=== PATIENT | male | born 1965 | race African-American/Black ===

== ENCOUNTER 2017-12-10 19:52 | Emergency (ER) | payer SELFPAY | END 2017-12-10 20:34 | disposition home or self-care (01) | LOC: ER 19:52 | DX: M54.5 Low back pain (principal); G89.29 Other chronic pain; I10 Essential (primary) hypertension | CPT/HCPCS: 99283 ==

== ENCOUNTER 2018-09-25 21:38 | Emergency (ER) | payer BC ==
[~2018-09-25] VITALS: Ht 167.6 cm; Wt 93.0 kg
[~2018-09-25 21:38] MED LIST: CYCL10TA2 PO; DICL50TA4 PO; METH4TAB2 PO
[2018-09-25 23:05] VITALS: BP 134/81
[2018-09-26 00:51] LABS: INFLUENZA A PATIENT NEGATIVE (NEGATIVE); INFLUENZA B PATIENT NEGATIVE (NEGATIVE)
[2018-09-26] MEDS ORDERED: BENZ100C PO (00:59)
[2018-09-26] MEDS ORDERED: FLUT9.9S NS (00:59)
--- NOTE | 2018-09-26 00:59 | PHYS DOC ---
Past Medical History Past Medical History: High Cholesterol, Other Additional Past Medical Histor: CHRONIC BACK PAIN (ROMAN CORONADO APRN) Past Surgical History: No Surgical History, Other Additional Past Surgical Histo: HERNIA, LEFT HAND (ROMAN CORONADO APRN) Alcohol Use: Rarely Drug Use: Marijuana (ROMAN CORONADO APRN) Adult General Chief Complaint Chief Complaint: Congestion HPI HPI Patient is a 52 year old male with history of high cholesterol who presents to the ED today complaining of cough and nasal congestion, symptoms began 3 days ago. Denies any fever. (ROMAN CORONADO APRN) Review of Systems Review of Systems Constitutional: Denies fever or chills [] Eyes: Denies change in visual acuity, redness, or eye pain [] HENT: Reports nasal congestion, denies sore throat [] Respiratory: Reports cough, denies shortness of breath [] Cardiovascular: No additional information not addressed in HPI [] GI: Denies abdominal pain, nausea, vomiting, bloody stools or diarrhea [] : Denies dysuria or hematuria [] Musculoskeletal: Denies back pain or joint pain [] Integument: Denies rash or skin lesions [] Neurologic: Denies headache, focal weakness or sensory changes [] All other systems were reviewed and found to be within normal limits, except as documented in this note. (ROMAN CORONADO APRN) Allergies Allergies Allergies Coded Allergies Type Severity Reaction Last Updated Verified No Known Drug Allergies 03/28/14 No (BRI NICHOLS DO) Physical Exam Physical Exam Constitutional: Well developed, well nourished, no acute distress, non-toxic appearance. [] HENT: Normocephalic, atraumatic, bilateral external ears normal, oropharynx moist, no oral exudates, nose normal. [] Eyes: PERRLA, EOMI, conjunctiva normal, no discharge. [] Neck: Normal range of motion, no tenderness, supple, no stridor. [] Cardiovascular:Heart rate regular rhythm, no murmur [] Lungs & Thorax: Bilateral breath sounds clear to auscultation [] Abdomen: Bowel sounds normal, soft, no tenderness, no masses, no pulsatile masses. [] Skin: Warm, dry, no erythema, no rash. [] Back: No tenderness, no CVA tenderness. [] Extremities: No tenderness, no cyanosis, no clubbing, ROM intact, no edema. [] Neurologic: Alert and oriented X 3, normal motor function, normal sensory function, no focal deficits noted. [] Psychologic: Affect normal, judgement normal, mood normal. [] (ROMAN CORONADO APRN) Current Patient Data Vital Signs Vital Signs Date Time Temp Pulse Resp B/P (MAP) Pulse Ox O2 Delivery O2 Flow Rate FiO2 09/25/18 23:05 97.9 60 14 134/81 (98) 99 Room Air 97.9 (BRI NICHOLS DO) Lab Values Laboratory Tests Test 09/26/18 00:18 Influenza Type A Antigen Negative (NEGATIVE) Influenza Type B Antigen Negative (NEGATIVE) (BRI NICHOLS DO) EKG EKG [] (ROMAN CORONADO APRN) Radiology/Procedures Radiology/Procedures [] (ROMAN CORONADO APRN) Radiology/Procedures PROCEDURE: CHEST PA & LATERAL PA and lateral chest radiographs 09/26/2018 CLINICAL HISTORY: Shortness of breath and cough. PA and lateral digital radiographs of the chest were obtained. No previous studies are available for comparison. The cardiac silhouette is normal in size. The thoracic aorta is mildly tortuous. Atherosclerotic calcification of the thoracic aorta is seen. No acute pulmonary infiltrate is noted. No pneumothorax or pleural effusion is seen. Mild degenerative changes are seen involving the thoracic spine. IMPRESSION: No acute pulmonary infiltrate is seen. Electronically signed by: Conrado Souza MD (09/26/2018 3:12 AM) [facility] (BRI NICHOLS DO) Course & Med Decision Making Course & Med Decision Making Pertinent Labs and Imaging studies reviewed. (See chart for details) This is a 52-year-old male patient presenting to the ED today with cough and nasal congestion, symptoms began 3 days ago. Patient is afebrile in the ED. Negative influenza A or B. Chest x-ray interpreted by is negative. Patient was discharged with instructions to follow-up with the primary care doctor. Given prescription for Flonase. OTC medications recommended. Discharged in stable condition. (ROMAN CORONADO APRN) Dragon Disclaimer Dragon Disclaimer This electronic medical record was generated, in whole or in part, using a voice recognition dictation system. (ROMAN CORONADO APRN) Departure Departure Impression: Primary Impression: Cough Additional Impression: Upper respiratory infection Disposition: HOME, SELF-CARE Condition: STABLE Referrals: NO PCP (PCP) follow up with your doctor in 1-2 week Patient Instructions: Cough, Adult, [id number], Upper Respiratory Infection, Adult, [id number] Additional Instructions: You were evaluated in the emergency room with symptoms consistent of a viral illness. Push fluids, rest, maintain good hand hygiene. Take the prescribed medication as ordered. Follow-up with your own doctor in 1-2 weeks. You can also use tpre-kck-[id number] cold and flu remedies. Scripts Benzonatate (TESSALON PERLE) 100 Mg Capsule 1 CAP PO TID, #30 CAP Prov: ROMAN CORONADO APRN 09/26/18 Fluticasone Propionate (Flonase Allergy Relief) 9.9 Ml [place].susp 2 SPRAYS NS DAILY, #1 BOTTLE Prov: ROMAN CORONADO APRN 09/26/18 Attending Signature Attending Signature I have reviewed the PA/SOCIAL STUDIES TEACHER's note and plan of care. I was available for consultation as needed during the patient's visit in the emergency department. I agree with the clinical impression, plan, and disposition. (BRI NICHOLS DO) Problem Qualifiers Additional Impression: Upper respiratory infection URI type: unspecified URI Qualified Codes: J06.9 - Acute upper respiratory infection, unspecified ROMAN CORONADO APRN Sep 26, 2018 00:59 BRI NICHOLS DO Sep 29, 2018 05:32
--- NOTE | 2018-09-26 03:15 | RAD ---
PA and lateral chest radiographs 09/26/2018 CLINICAL HISTORY: Shortness of breath and cough. PA and lateral digital radiographs of the chest were obtained. No previous studies are available for comparison. The cardiac silhouette is normal in size. The thoracic aorta is mildly tortuous. Atherosclerotic calcification of the thoracic aorta is seen. No acute pulmonary infiltrate is noted. No pneumothorax or pleural effusion is seen. Mild degenerative changes are seen involving the thoracic spine. IMPRESSION: No acute pulmonary infiltrate is seen. Electronically signed by: Conrado Souza MD (09/26/2018 3:12 AM) [facility]
== END 2018-09-26 01:08 | disposition home or self-care (01) ==
LOC: ER 21:38
DX: J06.9 Acute upper respiratory infection, unspecified (principal); E78.00 Pure hypercholesterolemia, unspecified; G89.29 Other chronic pain
CPT/HCPCS: 71046; 87804; 99284-25

== ENCOUNTER 2018-10-20 13:18 | Emergency (ER) | payer BC ==
[~2018-10-20] VITALS: Ht 175.3 cm; Wt 90.7 kg
[~2018-10-20 13:18] MED LIST changes: +BENZ100C PO; +FLUT9.9S NS
[2018-10-20 13:22] VITALS: BP 155/80
[2018-10-20] MEDS ORDERED: KETOROLAC 30 MG/ML VIAL. IV ONE (14:00)
--- NOTE | 2018-10-20 14:00 | PHYS DOC ---
Past Medical History Past Medical History: High Cholesterol, Other Additional Past Medical Histor: CHRONIC BACK PAIN Past Surgical History: No Surgical History, Other Additional Past Surgical Histo: HERNIA, LEFT HAND Smoking: Cigarettes Alcohol Use: Rarely Drug Use: Marijuana Adult General Chief Complaint Chief Complaint: HEADACHE HPI HPI Patient is a 53 year old male who presents with complaining of headache. Patient complaining of intermittent episodes of frontal and retro-orbital headache for the last one month that usually happen twisted week and last for about 30 minutes as a sharp and throbbing pain with blurred vision and photophobia. Patient denies fever and chills, focal neuro deficit, neck pain, head injury, history of migraine headache or previous episodes of headache, history of hypertension. Patient states his pain was 10 over 10 and after taking at least dropped to 7/10. Patient states he was doing this emergency room about 1 month ago with the same headache and complaining of cough and treated for cough without having any evaluation of his headache improvement of cough. Patient currently is a smoker and states he drinks alcohol occasionally. Review of Systems Review of Systems Constitutional: Denies fever or chills [] Eyes: Denies change in visual acuity, redness, or eye pain [] HENT: Denies nasal congestion or sore throat [] Respiratory: Denies cough or shortness of breath [] Cardiovascular: No additional information not addressed in HPI [] GI: Denies abdominal pain, nausea, vomiting, bloody stools or diarrhea [] : Denies dysuria or hematuria [] Musculoskeletal: Denies back pain or joint pain [] Integument: Denies rash or skin lesions [] Neurologic: Reports headache, denies focal weakness or sensory changes [] Endocrine: Denies polyuria or polydipsia [] All other systems were reviewed and found to be within normal limits, except as documented in this note. Current Medications Current Medications Current Medications Medications (Trade) Dose Ordered Sig/Mj Start Time Stop Time Status Last Admin Dose Admin Ketorolac Tromethamine (Toradol 30mg Vial) 30 mg 1X ONCE 10/20/18 14:00 10/20/18 14:01 DC 10/20/18 14:39 30 MG Allergies Allergies Allergies Coded Allergies Type Severity Reaction Last Updated Verified No Known Drug Allergies 03/28/14 No Physical Exam Physical Exam Constitutional: Well developed, well nourished, mild distress, non-toxic appearance. [] HENT: Normocephalic, atraumatic, bilateral external ears normal, oropharynx moist, no oral exudates, nose normal. [] Eyes: PERRLA, EOMI, conjunctiva normal, no discharge. [] Neck: Normal range of motion, no tenderness, supple, no stridor. [] Cardiovascular:Heart rate regular rhythm, no murmur [] Lungs & Thorax: Bilateral breath sounds clear to auscultation [] Neurologic: Alert and oriented X 3, normal motor function, normal sensory function, no focal deficits noted. [] Psychologic: Affect normal, judgement normal, mood normal. [] Current Patient Data Vital Signs Vital Signs Date Time Temp Pulse Resp B/P (MAP) Pulse Ox O2 Delivery O2 Flow Rate FiO2 10/20/18 13:22 98.2 85 16 155/80 (105) 97 98.2 Lab Values Laboratory Tests Test 10/20/18 13:55 10/20/18 14:20 White Blood Count 8.3 x10^3/uL (4.0-11.0) Red Blood Count 4.53 x10^6/uL (4.30-5.70) Hemoglobin 12.8 g/dL (13.0-17.5) L Hematocrit 36.7 % (39.0-53.0) L Mean Corpuscular Volume 81 fL (79-100) Mean Corpuscular Hemoglobin 28 pg (25-35) Mean Corpuscular Hemoglobin Concent 35 g/dL (31-37) Red Cell Distribution Width 15.0 % (11.5-14.5) H Platelet Count 336 x10^3/uL (140-400) Neutrophils (%) (Auto) 60 % (31-73) Lymphocytes (%) (Auto) 31 % (24-48) Monocytes (%) (Auto) 8 % (0-9) Eosinophils (%) (Auto) 1 % (0-3) Basophils (%) (Auto) 1 % (0-3) Neutrophils # (Auto) 5.0 x10^3uL (1.8-7.7) Lymphocytes # (Auto) 2.5 x10^3/uL (1.0-4.8) Monocytes # (Auto) 0.7 x10^3/uL (0.0-1.1) Eosinophils # (Auto) 0.1 x10^3/uL (0.0-0.7) Basophils # (Auto) 0.1 x10^3/uL (0.0-0.2) Sodium Level 138 mmol/L (136-145) Potassium Level 4.1 mmol/L (3.5-5.1) Chloride Level 103 mmol/L (98-107) Carbon Dioxide Level 24 mmol/L (21-32) Anion Gap 11 (6-14) Blood Urea Nitrogen 13 mg/dL (8-26) Creatinine 0.9 mg/dL (0.7-1.3) Estimated GFR (Cockcroft-Gault) 106.0 BUN/Creatinine Ratio 14 (6-20) Glucose Level 91 mg/dL (70-99) Calcium Level 8.9 mg/dL (8.5-10.1) Total Bilirubin 0.3 mg/dL (0.2-1.0) Aspartate Amino Transferase (AST) 24 U/L (15-37) Alanine Aminotransferase (ALT) 23 U/L (16-63) Alkaline Phosphatase 102 U/L (46-116) Total Protein 7.4 g/dL (6.4-8.2) Albumin 3.6 g/dL (3.4-5.0) Albumin/Globulin Ratio 0.9 (1.0-1.7) L Ethyl Alcohol Level 12 mg/dL (0-10) H Laboratory Tests 10/20/18 13:55 Laboratory Tests 10/20/18 14:20 EKG EKG [] Radiology/Procedures Radiology/Procedures [facility] [address] [place] [address] IMAGING REPORT Signed PATIENT: ALEXEY BAKER ACCOUNT: [id number] : 1965 LOCATION: ER AGE: 53 SEX: M EXAM STATUS: REG ER ORD. PHYSICIAN: JODEE MARK MD REASON: headache PROCEDURE: CT HEAD WO CONTRAST Exam performed: CT scan of the head without contrast. Date of Service: 10/20/2018. Comparison: None available. Clinical History: Headache. Technique: Helical acquisitions are obtained from the foramen magnum to the vertex without intravenous administration of contrast. Findings: The ventricles are midline without evidence of dilatation. Normal conroy-white differentiation is maintained. There is no extra axial fluid collection, intraparenchymal hemorrhage or mass lesion. The visualized portions of the orbits, paranasal sinuses and the mastoid air cells appear clear. The calvarium is intact. Impression: 1. No acute intracranial process detected. RS Compliance Statement: One or more of the following individualized dose reduction techniques were utilized for this examination: 1. Automated exposure control 2. Adjustment of the mA and/or kV according to patient size 3. Use of iterative reconstruction technique Electronically signed by: Kiana Mosher MD (10/20/2018 2:11 PM) [facility] DICTATED and SIGNED BY: KIANA MOSHER MD DATE: 10/20/18 1411 Course & Med Decision Making Course & Med Decision Making Pertinent Labs and Imaging studies reviewed. (See chart for details) Evaluation of patient in ER showed 53-year-old male patient with complaining of intermittent episodes of headache for one month. Patient had unremarkable physical exam and labs and CT head. Blood pressure was 150 at arrival to ER that gradually decreased to 145 without history of hypertension. According to EMR patient had history of hypertension and stated she does not take any medication. Patient felt better with treatment with Toradol in ER. Patient was advised to check and record his blood pressure and follow up with her primary care physician and plan discharge patient home to diagnose of headache induced with hypertension and using alcohol. Dragon Disclaimer Dragon Disclaimer This electronic medical record was generated, in whole or in part, using a voice recognition dictation system. Departure Departure Impression: Primary Impression: Headache Additional Impressions: Uncontrolled hypertension Tobacco abuse Tobacco abuse counseling Disposition: HOME, SELF-CARE (715) Condition: IMPROVED Referrals: NO PCP (PCP) Patient Instructions: Alcohol and Headaches, General Headache Without Cause, Hypertension, Smoking Cessation, Tips For Success Additional Instructions: Record your blood pressure and follow-up with your primary care physician Follow-up with your primary care physician in 3-5 days Return to ER if not getting better Scripts Lisinopril/Hydrochlorothiazide (LISINOPRIL-HCTZ 10-12.5 MG TAB) 1 Each Tablet 1 TAB PO DAILY, #30 TAB 0 Refills Prov: JODEE MARK MD 10/20/18 Problem Qualifiers Primary Impression: Headache Headache type: unspecified Headache chronicity pattern: unspecified pattern Intractability: not intractable Qualified Codes: R51 - Headache JODEE MARK MD Oct 20, 2018 14:00
[2018-10-20 14:04] LABS: BASO # 0.1 x10^3/uL (0.0-0.2); BASO % 1 % (0-3); EOS # 0.1 x10^3/uL (0.0-0.7); EOS % 1 % (0-3); HEMATOCRIT 36.7 % (39.0-53.0); HEMOGLOBIN 12.8 g/dL (13.0-17.5); LYMPH # 2.5 x10^3/uL (1.0-4.8); LYMPH % 31 % (24-48); MEAN CORPUSCULAR HEMOGLOBIN 28 pg (25-35); MEAN CORPUSCULAR HGB CONC 35 g/dL (31-37); MEAN CORPUSCULAR VOLUME 81 fL (79-100); MONO # 0.7 x10^3/uL (0.0-1.1); MONO % 8 % (0-9); NEUT % 60 % (31-73); PLATELET COUNT 336 x10^3/uL (140-400); RED BLOOD COUNT 4.53 x10^6/uL (4.30-5.70); WHITE BLOOD COUNT 8.3 x10^3/uL (4.0-11.0)
--- NOTE | 2018-10-20 14:14 | RAD ---
Exam performed: CT scan of the head without contrast. Date of Service: 10/20/2018. Comparison: None available. Clinical History: Headache. Technique: Helical acquisitions are obtained from the foramen magnum to the vertex without intravenous administration of contrast. Findings: The ventricles are midline without evidence of dilatation. Normal conroy-white differentiation is maintained. There is no extra axial fluid collection, intraparenchymal hemorrhage or mass lesion. The visualized portions of the orbits, paranasal sinuses and the mastoid air cells appear clear. The calvarium is intact. Impression: 1. No acute intracranial process detected. PQRS Compliance Statement: One or more of the following individualized dose reduction techniques were utilized for this examination: 1. Automated exposure control 2. Adjustment of the mA and/or kV according to patient size 3. Use of iterative reconstruction technique Electronically signed by: Kiana Mosher MD (10/20/2018 2:11 PM) [facility]
[2018-10-20 14:33] LABS: CALCIUM 8.9 mg/dL (8.5-10.1); CREATININE 0.9 mg/dL (0.7-1.3); POTASSIUM 4.1 mmol/L (3.5-5.1)
[2018-10-20 14:38] LABS: ALBUMIN 3.6 g/dL (3.4-5.0); ALBUMIN/GLOBULIN RATIO 0.9 (1.0-1.7); TOTAL BILIRUBIN 0.3 mg/dL (0.2-1.0); TOTAL PROTEIN 7.4 g/dL (6.4-8.2)
[2018-10-20] MEDS ORDERED: LISI1TAB3 PO (15:51)
== END 2018-10-20 16:20 | disposition home or self-care (01) ==
LOC: ER 13:18
DX: R51 Headache (principal); I10 Essential (primary) hypertension; Z71.6 Tobacco abuse counseling; E78.00 Pure hypercholesterolemia, unspecified; G89.29 Other chronic pain; F17.210 Nicotine dependence, cigarettes, uncomplicated
CPT/HCPCS: 36415; 70450; 80053; 85025; 96374; 99285; G0480; J1885

== ENCOUNTER 2019-02-28 17:15 | Emergency (ER) | payer BC ==
[~2019-02-28] VITALS: Ht 167.6 cm; Wt 94.3 kg
[~2019-02-28 17:15] MED LIST changes: +LISI1TAB23 PO
[2019-02-28] MEDS ORDERED: BENZONATATE 100 MG CAPSULE. PO ONE (19:00)
[2019-02-28] MEDS ORDERED: predniSONE 10 MG TABLET PO ONE (19:00)
[2019-02-28] MEDS ORDERED: IPRATRPIUM/ALBUTEROL 0.5/2.5MG 3 ML NEBU. NEB ONE (19:00)
[2019-02-28 19:13] VITALS: BP 165/85
[2019-02-28] MEDS ORDERED: PRED50TA PO (19:33)
[2019-02-28] MEDS ORDERED: BENZ100C PO (19:33)
[2019-02-28] MEDS ORDERED: ALBU2.5V8 INH (19:33)
--- NOTE | 2019-02-28 19:33 | PHYS DOC ---
Past Medical History Past Medical History: No Pertinent History Additional Past Medical Histor: CHRONIC BACK PAIN Past Surgical History: No Surgical History, Other Additional Past Surgical Histo: HERNIA, LEFT HAND Alcohol Use: Occasionally Drug Use: Marijuana Adult General Chief Complaint Chief Complaint: COUGH HPI HPI Patient is a 53 year old male with history of smoking, hypertension, who presents to the ED today complaining of cough and nasal congestion for 3 days. Patient states several family members have similar symptoms. Denies any fever. Review of Systems Review of Systems Constitutional: Denies fever or chills [] Eyes: Denies change in visual acuity, redness, or eye pain [] HENT: Reports nasal congestion, denies sore throat [] Respiratory: Reports cough, denies shortness of breath [] Cardiovascular: No additional information not addressed in HPI [] GI: Denies abdominal pain, nausea, vomiting, bloody stools or diarrhea [] : Denies dysuria or hematuria [] Musculoskeletal: Denies back pain or joint pain [] Integument: Denies rash or skin lesions [] Neurologic: Denies headache, focal weakness or sensory changes [] All other systems were reviewed and found to be within normal limits, except as documented in this note. Current Medications Current Medications Current Medications Medications (Trade) Dose Ordered Sig/Mj Start Time Stop Time Status Last Admin Dose Admin Albuterol/ Ipratropium (Duoneb) 3 ml 1X ONCE 02/28/19 19:00 02/28/19 19:01 DC 02/28/19 18:47 3 ML Benzonatate (Tessalon Perle) 100 mg 1X ONCE 02/28/19 19:00 02/28/19 19:01 DC Prednisone (Prednisone) 50 mg 1X ONCE 02/28/19 19:00 02/28/19 19:01 DC Allergies Allergies Allergies Coded Allergies Type Severity Reaction Last Updated Verified No Known Drug Allergies 03/28/14 No Physical Exam Physical Exam Constitutional: Well developed, well nourished, no acute distress, non-toxic appearance. [] HENT: Normocephalic, atraumatic, bilateral external ears normal, oropharynx moist, no oral exudates, patient sounds congested nasally. Eyes: PERRLA, EOMI, conjunctiva normal, no discharge. [] Neck: Normal range of motion, no tenderness, supple, no stridor. [] Cardiovascular:Heart rate regular rhythm, no murmur [] Lungs & Thorax: Bilateral breath sounds clear to auscultation [] Abdomen: Bowel sounds normal, soft, no tenderness, no masses, no pulsatile masses. [] Skin: Warm, dry, no erythema, no rash. [] Back: No tenderness, no CVA tenderness. [] Extremities: No tenderness, no cyanosis, no clubbing, ROM intact, no edema. [] Neurologic: Alert and oriented X 3, normal motor function, normal sensory function, no focal deficits noted. [] Psychologic: Affect normal, judgement normal, mood normal. [] Current Patient Data Vital Signs Vital Signs Date Time Temp Pulse Resp B/P (MAP) Pulse Ox O2 Delivery O2 Flow Rate FiO2 02/28/19 19:13 98.5 107 20 165/85 (111) 97 Room Air 98.5 EKG EKG [] Radiology/Procedures Radiology/Procedures [] Course & Med Decision Making Course & Med Decision Making Pertinent Labs and Imaging studies reviewed. (See chart for details) This is a 53-year-old male patient presented to the ED today with cough and nasal congestion for 3 days. Symptoms are likely viral. Given a DuoNeb treatment and started on prednisone. Patient is a smoker, encouraged to consider smoking cessation. Discharged with albuterol inhaler, Tessalon Perles, prednisone for 4 more days. Follow-up with PCP in 1-2 weeks. Dragon Disclaimer Dragon Disclaimer This electronic medical record was generated, in whole or in part, using a voice recognition dictation system. Departure Departure Impression: Primary Impression: Acute bronchitis Additional Impressions: Upper respiratory infection Smoking addiction Disposition: 01 HOME, SELF-CARE Condition: STABLE Referrals: NO PCP (PCP) Follow-up with your doctor in 1-2 weeks Patient Instructions: Acute Bronchitis, [id number], Upper Respiratory Infection, Adult, [id number] Additional Instructions: You were evaluated in the emergency room for symptoms consistent with upper respiratory infection and acute bronchitis. Consider smoking cessation. Follow- up with your doctor in 1-2 take the prescribed medications as ordered. Scripts Prednisone (PREDNISONE) 50 Mg Tablet 1 TAB PO DAILY, #4 TAB Prov: MUTUNGA,ROMAN GAME AUTHOR 02/28/19 Benzonatate (TESSALON PERLE) 100 Mg Capsule 1 CAP PO TID, #30 CAP Prov: MUTUNGA,ROMAN GAME AUTHOR 02/28/19 Albuterol Sulfate (PROAIR HFA INHALER) 8.5 Gm Hfa.aer.ad 1 PUFF INH PRN Q6HRS PRN for SHORTNESS OF BREATH, #1 INHALER 0 Refills Prov: ROMAN CORONADO GAME AUTHOR 02/28/19 Problem Qualifiers Primary Impression: Acute bronchitis Bronchitis organism: unspecified organism Qualified Codes: J20.9 - Acute bronchitis, unspecified Additional Impressions: Upper respiratory infection URI type: unspecified URI Qualified Codes: J06.9 - Acute upper respiratory infection, unspecified ROMAN CORONADO GAME AUTHOR Feb 28, 2019 19:33
--- NOTE | 2019-02-28 22:32 | RAD ---
CHEST PA LATERAL INDICATION: Cough. COMPARISON STUDY: 09/26/2018. FINDINGS: Lungs: Normal lung volume. No pulmonary mass or consolidation. The tracheobronchial tree and hilar structures are normal. Pleura: No pleural effusion or pneumothorax. Heart and Mediastinum: The cardiomediastinal silhouette is normal. Mild tortuosity of the thoracic aorta. Bones and Soft Tissues: Mild degenerative changes of the spine. IMPRESSION: No acute cardiopulmonary process. Electronically signed by: Florencio Bond MD (02/28/2019 10:29 PM) [facility]
== END 2019-02-28 19:50 | disposition home or self-care (01) ==
LOC: ER 17:15
DX: J20.9 Acute bronchitis, unspecified (principal); J06.9 Acute upper respiratory infection, unspecified; G89.29 Other chronic pain; F17.200 Nicotine dependence, unspecified, uncomplicated
CPT/HCPCS: 71046; 94640; 99284; J7512; J7620

== ENCOUNTER 2019-07-14 18:10 | Emergency (ER) | payer BC ==
[~2019-07-14 18:10] MED LIST changes: +ALBU2.5V8 INH; +PRED50TA PO
--- NOTE | 2019-07-14 18:53 | PHYS DOC ---
Past Medical History Past Medical History: No Pertinent History Additional Past Medical Histor: CHRONIC BACK PAIN Past Surgical History: No Surgical History, Other Additional Past Surgical Histo: HERNIA, LEFT HAND Alcohol Use: Occasionally Drug Use: Marijuana Adult General Chief Complaint Chief Complaint: HEADACHE HPI HPI 53-year-old male with underlying history of hypertension presents to the emergency Department complaints of headache which started around 2 PM. He descr ibes the pain as achy sensation, behind his eyes. States he's had history of headache in the past contributed to elevated blood pressure. Current blood pressure 184/98. She denies any numbness or tingling in the upper extremities, paresthesia, or speech difficulty. Nothing makes his pain worse, nothing makes his pain better. Patient denies any nausea, vomiting. When asked patient takes medication for his blood pressure, he states he doesn't take pills. He as well denies any Tylenol or Motrin prior to his arrival. Review of Systems Review of Systems Constitutional: Denies fever or chills [] Respiratory: Denies cough or shortness of breath [] Cardiovascular: No additional information not addressed in HPI [] GI: Denies abdominal pain, nausea, vomiting, bloody stools or diarrhea [] Integument: Denies rash or skin lesions [] Neurologic: + headache, no focal weakness or sensory changes [] All other systems were reviewed and found to be within normal limits, except as documented in this note. Current Medications Current Medications Current Medications Medications (Trade) Dose Ordered Sig/[facility] Start Time Stop Time Status Last Admin Dose Admin Acetaminophen (Tylenol) 1,000 mg 1X ONCE 07/14/19 19:00 07/14/19 19:01 DC 07/14/19 19:03 1,000 MG Diphenhydramine HCl (Benadryl) 50 mg 1X ONCE 07/14/19 19:15 07/14/19 19:16 DC 07/14/19 19:09 50 MG Hydralazine HCl (Apresoline Inj) 10 mg 1X ONCE 07/14/19 19:15 07/14/19 19:16 DC 07/14/19 19:09 10 MG Ketorolac Tromethamine (Toradol 30mg Vial) 30 mg 1X ONCE 07/14/19 19:15 07/14/19 19:16 DC 07/14/19 19:10 30 MG Metoclopramide HCl (Reglan Vial) 10 mg 1X ONCE 07/14/19 19:15 07/14/19 19:16 DC 07/14/19 19:08 10 MG Allergies Allergies Allergies Coded Allergies Type Severity Reaction Last Updated Verified No Known Drug Allergies 03/28/14 No Physical Exam Physical Exam Constitutional: Well developed, well nourished, no acute distress, non-toxic appearance. [] HENT: Normocephalic, atraumatic, bilateral external ears normal, oropharynx mo ist, no oral exudates, nose normal. [] Eyes: PERRLA, EOMI, conjunctiva normal, no discharge. [] Neck: Normal range of motion, no tenderness, supple, no stridor. [] Cardiovascular:Heart rate regular rhythm, no murmur [] Lungs & Thorax: Bilateral breath sounds clear to auscultation [] Abdomen: Bowel sounds normal, soft, no tenderness, no masses, no pulsatile masses. [] Skin: Warm, dry, no erythema, no rash. [] Extremities: No tenderness, no edema. [] Neurologic: Alert and oriented X 3, no focal deficits noted. [] Psychologic: Affect normal, judgement normal, mood normal. [] Current Patient Data Vital Signs Vital Signs Date Time Temp Pulse Resp B/P (MAP) Pulse Ox O2 Delivery O2 Flow Rate FiO2 07/14/19 19:45 89 16 97 07/14/19 19:09 184/97 07/14/19 18:40 98.5 Room Air 98.5 Lab Values Laboratory Tests Test 07/14/19 19:03 White Blood Count 7.3 x10^3/uL (4.0-11.0) Red Blood Count 4.62 x10^6/uL (4.30-5.70) Hemoglobin 12.8 g/dL (13.0-17.5) L Hematocrit 36.7 % (39.0-53.0) L Mean Corpuscular Volume 80 fL (79-100) Mean Corpuscular Hemoglobin 28 pg (25-35) Mean Corpuscular Hemoglobin Concent 35 g/dL (31-37) Red Cell Distribution Width 14.9 % (11.5-14.5) H Platelet Count 297 x10^3/uL (140-400) Neutrophils (%) (Auto) 59 % (31-73) Lymphocytes (%) (Auto) 31 % (24-48) Monocytes (%) (Auto) 9 % (0-9) Eosinophils (%) (Auto) 1 % (0-3) Basophils (%) (Auto) 1 % (0-3) Neutrophils # (Auto) 4.3 x10^3/uL (1.8-7.7) Lymphocytes # (Auto) 2.2 x10^3/uL (1.0-4.8) Monocytes # (Auto) 0.6 x10^3/uL (0.0-1.1) Eosinophils # (Auto) 0.1 x10^3/uL (0.0-0.7) Basophils # (Auto) 0.1 x10^3/uL (0.0-0.2) Prothrombin Time 12.4 SEC (11.7-14.0) Prothrombin Time INR 1.0 (0.8-1.1) Sodium Level 139 mmol/L (136-145) Potassium Level 3.5 mmol/L (3.5-5.1) Chloride Level 102 mmol/L (98-107) Carbon Dioxide Level 29 mmol/L (21-32) Anion Gap 8 (6-14) Blood Urea Nitrogen 11 mg/dL (8-26) Creatinine 0.7 mg/dL (0.7-1.3) Estimated GFR (Cockcroft-Gault) 141.7 BUN/Creatinine Ratio 16 (6-20) Glucose Level 120 mg/dL (70-99) H Calcium Level 8.9 mg/dL (8.5-10.1) Total Bilirubin 0.4 mg/dL (0.2-1.0) Aspartate Amino Transferase (AST) 29 U/L (15-37) Alanine Aminotransferase (ALT) 29 U/L (16-63) Alkaline Phosphatase 116 U/L (46-116) Total Protein 7.7 g/dL (6.4-8.2) Albumin 3.9 g/dL (3.4-5.0) Albumin/Globulin Ratio 1.0 (1.0-1.7) Laboratory Tests 07/14/19 19:03 Laboratory Tests 07/14/19 19:03 EKG EKG [] Radiology/Procedures Radiology/Procedures [] Course & Med Decision Making Course & Med Decision Making Pertinent Labs and Imaging studies reviewed. (See chart for details) []53-year-old male with underlying history of hypertension presents to the emergency Department complaints of headache which started around 2 PM. He describes the pain as achy sensation, behind his eyes. States he's had history of headache in the past contributed to elevated blood pressure. Current blood pressure 184/98. She denies any numbness or tingling in the upper extremities, paresthesia, or speech difficulty. Nothing makes his pain worse, nothing makes his pain better. Patient denies any nausea, vomiting. When asked patient takes medication for his blood pressure, he states he doesn't take pills. He as well denies any Tylenol or Motrin prior to his arrival. Laboratory values reviewed Patient received Benadryl 50 mg, Toradol 30 mg, Reglan 10 mg, hydralazine 10 mg Pressure currently 130/87, patient's headache is resolved Recommend starting 20 mg lisinopril, patient states he will try and take these medications Return precautions provided Discussed with at bedside Pete Disclaimer Pete Disclaimer This electronic medical record was generated, in whole or in part, using a voice recognition dictation system. Departure Departure Impression: Primary Impression: Headache Additional Impression: Accelerated hypertension Disposition: HOME, SELF-CARE Condition: IMPROVED Referrals: NO PCP (PCP) Patient Instructions: General Headache Without Cause, [id number], Hypertension Additional Instructions: Recommend follow up with PCP 3 - 5 days Return to the ER with worsening symptoms, intractable pain, fever, altered mental status Tylenol/Motrin as needed for pain Take new BP medication as prescribed Scripts Lisinopril (LISINOPRIL) 20 Mg Tablet 1 TAB PO DAILY, #30 TAB 0 Refills Prov: BEATRIZ BRADFORD MD 07/14/19 Problem Qualifiers Primary Impression: Headache Headache type: unspecified Headache chronicity pattern: acute headache Intractability: intractable Qualified Codes: R51 - Headache BEATRIZ BRADFORD MD Jul 14, 2019 18:53
[2019-07-14] MEDS ORDERED: ACETAMINOPHEN 500 MG TABLET PO ONE (19:00)
[2019-07-14 19:10] LABS: BASO # 0.1 x10^3/uL (0.0-0.2); BASO % 1 % (0-3); EOS # 0.1 x10^3/uL (0.0-0.7); EOS % 1 % (0-3); HEMATOCRIT 36.7 % (39.0-53.0); HEMOGLOBIN 12.8 g/dL (13.0-17.5); LYMPH # 2.2 x10^3/uL (1.0-4.8); LYMPH % 31 % (24-48); MEAN CORPUSCULAR HEMOGLOBIN 28 pg (25-35); MEAN CORPUSCULAR HGB CONC 35 g/dL (31-37); MEAN CORPUSCULAR VOLUME 80 fL (79-100); MONO # 0.6 x10^3/uL (0.0-1.1); MONO % 9 % (0-9); NEUT # 4.3 x10^3/uL (1.8-7.7); NEUT % 59 % (31-73); PLATELET COUNT 297 x10^3/uL (140-400); RED BLOOD COUNT 4.62 x10^6/uL (4.30-5.70); RED CELL DISTRIBUTION WIDTH 14.9 % (11.5-14.5); WHITE BLOOD COUNT 7.3 x10^3/uL (4.0-11.0)
[2019-07-14] MEDS ORDERED: hydrALAZINE 20 MG/ML VIAL. IVP ONE (19:15)
[2019-07-14] MEDS ORDERED: diphenhydrAMINE 50 MG/ML VIAL IVP ONE (19:15)
[2019-07-14] MEDS ORDERED: KETOROLAC 30 MG/ML VIAL. IVP ONE (19:15)
[2019-07-14] MEDS ORDERED: METOCLOPRAMIDE HCL 10 MG/2 ML VIAL. IVP ONE (19:15)
[2019-07-14 19:19] LABS: CALCIUM 8.9 mg/dL (8.5-10.1); CREATININE 0.7 mg/dL (0.7-1.3); GFR 141.7; POTASSIUM 3.5 mmol/L (3.5-5.1)
[2019-07-14 19:21] LABS: PROTHROMBIN TIME PATIENT 12.4 SEC (11.7-14.0)
[2019-07-14 19:26] LABS: ALBUMIN 3.9 g/dL (3.4-5.0); TOTAL BILIRUBIN 0.4 mg/dL (0.2-1.0); TOTAL PROTEIN 7.7 g/dL (6.4-8.2)
[2019-07-14 19:45] VITALS: BP 124/72
[2019-07-14] MEDS ORDERED: LISI-334 PO (20:28)
== END 2019-07-14 21:20 | disposition home or self-care (01) ==
LOC: ER 18:10
DX: R51 Headache (principal); I10 Essential (primary) hypertension; G89.29 Other chronic pain; F12.90 Cannabis use, unspecified, uncomplicated; Z98.890 Other specified postprocedural states
CPT/HCPCS: 36415; 80053; 85025; 85610; 96374; 96375; 99284; J0360; J1200; J1885; J2765